=== PATIENT | female | born 1930 | race African-American/Black ===

== ENCOUNTER 2017-11-24 10:56 | Inpatient (IN) | payer MEDICARE ==
[~2017-11-24] VITALS: Ht 157.5 cm; Wt 83.4 kg
[2017-11-24] MEDS ORDERED: SODIUM CHLORIDE 0.9% 500 ML IVB ONE (11:05)
[2017-11-24 11:39] LABS: Basophils # (auto) 0 uL; Basophils % (auto) 0.2 % (0.0-2.0); Eosinophils # (auto) 0 uL; Hematocrit 35.1 % (36.0-46.0); Hemoglobin 11.8 g/dL (12.2-16.2); Lymphocytes # (auto) 0.7 uL; Lymphocytes % (auto) 6.8 % (10.0-50.0); Mean Corpuscular Hemoglobin 30.5 pg (28.0-32.0); Mean Corpuscular Hgb Conc. 33.5 g/dL (32.0-36.0); Monocytes # (auto) 0.6 uL; Monocytes % (auto) 6.2 % (0.0-12.0); Neutrophils # (auto) 8.6 uL; Neutrophils % (auto) 86.8 % (37.0-80.0); Platelet Count (auto) 171 10^3/uL (140-450); Red Blood Cells 3.85 10^6/uL (4.0-5.20); Red Cell Distribution Width 14.1 % (11.8-14.3); White Blood Cell 9.9 10^3/uL (4.4-10.8)
[2017-11-24 12:05] LABS: BUN/Creatinine Ratio 23.1; Bilirubin, Total 0.7 mg/dL (0.2-1.0); Calcium 8.6 mg/dL (8.5-10.1); Magnesium 2.8 mg/dL (1.6-2.6); Potassium 4.1 mmol/L (3.5-5.1); Total Protein 6.2 g/dL (6.4-8.2)
[2017-11-24 13:09] LABS: INR 0.98 (0.9-1.15); Partial Thromboplastin Time 23.4 sec (22.64-33.71); Prothrombin Time 10.7 sec (9.37-12.3)
[2017-11-24 13:18] LABS: Urine Bacteria FEW /hpf (None Seen); Urine Blood 3+ /uL (Negative); Urine Specific Gravity 1.016 (1.001-1.035); Urine WBC 468 /hpf (0 - 5)
[2017-11-24] MEDS ORDERED: LEVOFLOXACIN 500MG 100 ML IV ONE (13:45)
[2017-11-24] MEDS ORDERED: POTASSIUM CHL 20 Meq TABLET PO ONE (13:45)
[2017-11-24] MEDS ORDERED: FUROSEMIDE 40 MG/4 ML VIAL IV ONE (13:45)
[2017-11-24] MEDS ORDERED: MORPHINE SULF INJ 2 MG/ML SYRINGE 1ML IV PRN (13:45)
[2017-11-24] MEDS ORDERED: NITROGLYCERIN 0.4 MG SL TAB SL PRN (13:45)
[2017-11-24] MEDS ORDERED: ENOXAPARIN SOD 30 MG/0.3 ML SYRINGE SC SCH (14:00)
[2017-11-24] MEDS: ASPirin 81 mg TAB PO SCH (14:30)
[2017-11-24 14:51] VITALS: BP 119/55
[2017-11-24] MEDS: FUROSEMIDE 40 MG/4 ML VIAL IV SCH (18:13)
[2017-11-24] MEDS: ATORVASTATIN 20 MG TAB PO SCH (21:23)
[2017-11-24] MEDS: POTASSIUM CHL 20 Meq TABLET PO SCH (21:23)
[2017-11-24 22:00] VITALS: BP 99/53
[2017-11-25 05:00] VITALS: BP 96/49
[2017-11-25] MEDS: FUROSEMIDE 40 MG/4 ML VIAL IV SCH ×2 (05:40→17:40)
[2017-11-25 05:48] LABS: BUN/Creatinine Ratio 22.4; Calcium 8.2 mg/dL (8.5-10.1); Magnesium 2.7 mg/dL (1.6-2.6); Potassium 4.4 mmol/L (3.5-5.1)
[2017-11-25 08:00] VITALS: BP 102/58
[2017-11-25 08:51] VITALS: BP 120/47
[2017-11-25] MEDS: ENOXAPARIN SOD 40 MG/0.4 ML SYRINGE SC SCH (10:00)
[2017-11-25] MEDS: ASPirin 81 mg TAB PO SCH (10:00)
[2017-11-25] MEDS: POTASSIUM CHL 20 Meq TABLET PO SCH ×2 (11:31→22:18)
[2017-11-25 13:00] VITALS: BP 128/53
[2017-11-25 16:15] VITALS: BP 111/47
[2017-11-25] MEDS ORDERED: HYDR-4683 PO (18:11)
[2017-11-25] MEDS ORDERED: LOSA50TA6 PO (18:11)
[2017-11-25] MEDS ORDERED: METH4TAB7 PO (18:11)
[2017-11-25] MEDS ORDERED: ASPI81TA27 PO (18:11)
[2017-11-25] MEDS ORDERED: CARV12.544 PO (18:11)
[2017-11-25] MEDS ORDERED: SIMV-8 PO (18:11)
[2017-11-25] MEDS ORDERED: OMEP20CA74 PO (18:11)
[2017-11-25] MEDS ORDERED: AMLO10TA2 PO (18:11)
[2017-11-25 22:00] VITALS: BP 118/57
[2017-11-25] MEDS: ATORVASTATIN 20 MG TAB PO SCH (22:18)
[2017-11-26 05:18] VITALS: BP 126/57
[2017-11-26] MEDS: FUROSEMIDE 40 MG/4 ML VIAL IV SCH (06:15)
[2017-11-26 06:41] LABS: BUN/Creatinine Ratio 17.1; Calcium 8.2 mg/dL (8.5-10.1); Potassium 4.4 mmol/L (3.5-5.1)
[2017-11-26 08:40] VITALS: BP 121/87
[2017-11-26] MEDS: ASPirin 81 mg TAB PO SCH (09:37)
[2017-11-26] MEDS: ENOXAPARIN SOD 40 MG/0.4 ML SYRINGE SC SCH (09:37)
[2017-11-26] MEDS: POTASSIUM CHL 20 Meq TABLET PO SCH (09:37)
[2017-11-26 11:41] VITALS: BP 129/70
[2017-11-26] MEDS ORDERED: LOSARTAN POTASSIUM 50 MG TAB PO ONE (12:00)
[2017-11-26 16:35] VITALS: BP 116/54
[2017-11-26 22:00] VITALS: BP 121/59
[2017-11-26] MEDS: ATORVASTATIN 20 MG TAB PO SCH (22:11)
[2017-11-26] MEDS: CARVEDILOL 3.125 MG TAB PO SCH (22:12)
[2017-11-27 05:00] VITALS: BP 128/46
[2017-11-27 09:33] VITALS: BP 133/51
[2017-11-27] MEDS: FUROSEMIDE 40 MG/4 ML VIAL IV SCH (09:48)
[2017-11-27] MEDS: CARVEDILOL 3.125 MG TAB PO SCH ×2 (09:49→21:41)
[2017-11-27] MEDS: ASPirin 81 mg TAB PO SCH (09:49)
[2017-11-27] MEDS: LOSARTAN POTASSIUM 50 MG TAB PO SCH (09:50)
[2017-11-27] MEDS: ENOXAPARIN SOD 40 MG/0.4 ML SYRINGE SC SCH (09:50)
[2017-11-27 11:40] VITALS: BP 125/53
[2017-11-27 14:06] VITALS: BP 125/53
[2017-11-27] MEDS ORDERED: MORPHINE SULFATE 4 MG/ML SYR/VIAL IV PRN (20:00)
[2017-11-27] MEDS: ATORVASTATIN 20 MG TAB PO SCH (21:41)
[2017-11-27 22:00] VITALS: BP 119/52
[2017-11-28 05:30] VITALS: BP 140/60
[2017-11-28 08:00] VITALS: BP 104/62
[2017-11-28 08:44] VITALS: BP 104/62
[2017-11-28] MEDS: ASPirin 81 mg TAB PO SCH (09:05)
[2017-11-28] MEDS: CARVEDILOL 3.125 MG TAB PO SCH (09:05)
[2017-11-28] MEDS: LOSARTAN POTASSIUM 50 MG TAB PO SCH (09:06)
[2017-11-28] MEDS: ENOXAPARIN SOD 40 MG/0.4 ML SYRINGE SC SCH (09:06)
[2017-11-28] MEDS: FUROSEMIDE 40 MG/4 ML VIAL IV SCH (09:06)
== END 2017-11-28 10:40 | disposition home or self-care (01) | DRG 291 ==
LOC: ER 10:56 → TELE 10:57 → TELE-WESTW 18:36 → WEST WING 11-28 01:44
PROVIDERS: ADMIT Internal Medicine; ATTEND Internal Medicine
DX: I11.0 Hypertensive heart disease with heart failure (principal); N17.0 Acute kidney failure with tubular necrosis; N39.0 Urinary tract infection, site not specified; J96.10 Chronic respiratory failure, unspecified whether with hypoxia or hypercapnia; E44.1 Mild protein-calorie malnutrition; I50.43 Acute on chronic combined systolic (congestive) and diastolic (congestive) heart failure; J44.9 Chronic obstructive pulmonary disease, unspecified; E66.9 Obesity, unspecified; E78.5 Hyperlipidemia, unspecified; Z68.31 Body mass index [BMI] 31.0-31.9, adult; Z95.0 Presence of cardiac pacemaker; Z87.891 Personal history of nicotine dependence; Z91.018 Allergy to other foods
CPT/HCPCS: 36415; 51702; 70450; 71045; 76705; 80048; 80053; 81001; 83605; 83735; 83880; 84484; 85025; 85610; 85730; 87040; 93005; 93306; 94761; 96361; 96372; 96374; 96375; J1956

== ENCOUNTER 2020-09-22 19:37 | Inpatient (IN) | payer MEDICARE, MEDICAID ==
[~2020-09-22] VITALS: Ht 157.5 cm; Wt 76.5 kg
[~2020-09-22 19:37] MED LIST: AMLO10TA13 PO; ASPI-543 PO; CARV12.544 PO; HYDR-4833 PO; LOSA-69 PO; METH4TAB7 PO; OMEP20CA74 PO; SIMV-8 PO
[2020-09-22] MEDS ORDERED: methylPREDNISolone SOD SUCC 125 MG/2 ML VL IV ONE (20:30)
[2020-09-22] MEDS ORDERED: FUROSEMIDE 20 MG/2 ML VIAL IV ONE ×2 (20:30→21:45)
[2020-09-22 23:43] LABS: Basophils # (auto) 0 10 ^3/uL (0-0.2); Basophils % (auto) 0.5 % (0.0-2.0); Eosinophils # (auto) 0 10 ^3/uL (0-0.8); Eosinophils % (auto) 0.1 % (0.0-7.0); Hematocrit 35.4 % (36.0-46.0); Hemoglobin 11.3 g/dL (12.2-16.2); Lymphocytes # (auto) 1.3 10 ^3/uL (0.4-5.4); Lymphocytes % (auto) 32.5 % (10.0-50.0); Mean Corpuscular Hemoglobin 31.5 pg (28.0-32.0); Mean Corpuscular Hgb Conc. 31.8 g/dL (32.0-36.0); Mean Corpuscular Volume 98.8 fL (80.0-100.0); Monocytes # (auto) 0.6 10 ^3/uL (0-1.3); Monocytes % (auto) 15.5 % (0.0-12.0); Neutrophils # (auto) 2.1 10 ^3/uL (1.6-8.6); Neutrophils % (auto) 51.4 % (37.0-80.0); Nucleated Red Blood Cells % 0.3 %; Platelet Count (auto) 106 10^3/uL (140-450); Red Blood Cells 3.58 10^6/uL (4.0-5.20); Red Cell Distribution Width 14.9 % (11.8-14.3)
[2020-09-23 00:05] LABS: Alanine Aminotransferase 60 U/L (13-56); Aspartate Aminotransferase 50 U/L (15-37); GFR African American 52 mL/min; GFR Non-African American 43 mL/min
[2020-09-23 00:10] LABS: Albumin 3.4 g/dL (3.4-5.0); Alkaline Phosphatase 129 U/L (45-117); Anion Gap 5 (5-15); BUN/Creatinine Ratio 27.2; Bilirubin, Total 0.4 mg/dL (0.2-1.0); Blood Urea Nitrogen 34 mg/dL (7-18); Carbon Dioxide 25 mmol/L (21-32); Chloride 105 mmol/L (98-107); Glucose 103 mg/dL (74-106); Magnesium 2.5 mg/dL (1.6-2.6); Potassium 4.5 mmol/L (3.5-5.1); Sodium 135 mmol/L (136-145); Total Protein 7.1 g/dL (6.4-8.2)
[2020-09-23 00:11] LABS: INR 1.08 (0.9-1.15); Partial Thromboplastin Time 29.4 sec (23.0-31.2)
[2020-09-23] MEDS ORDERED: ALBUTEROL SULF 2.5 MG/0.5ML(0.5%) NEB SOLN NEB ONE (00:45)
[2020-09-23] MEDS ORDERED: IPRATROPIUM BROM 0.5 MG/2.5ML INH SOL NEB ONE (00:45)
[2020-09-23] MEDS ORDERED: IOHEXOL 350 MG/ML 100ML IJ ONE (01:29)
[2020-09-23] MEDS ORDERED: NITROGLYCERIN 0.4 MG SL TAB SL PRN (07:45)
[2020-09-23] MEDS ORDERED: DOCUSATE SOD 100 MG CAP PO PRN (07:45)
[2020-09-23] MEDS ORDERED: MORPHINE SULF INJ 2 MG/ML SYRINGE 1ML IV PRN (07:45)
[2020-09-23] MEDS ORDERED: MORPHINE SULFATE 4 MG/ML SYR/VIAL IV PRN (07:45)
[2020-09-23] MEDS ORDERED: HYDROcodone-ACET 5/325MG TAB PO PRN (07:45)
[2020-09-23] MEDS ORDERED: ACETAMINOPHEN 500 MG TAB PO PRN (07:45)
[2020-09-23] MEDS ORDERED: ONDANSETRON HCL 4 MG/2 ML VIAL IV PRN (07:45)
[2020-09-23 08:55] LABS: Basophils # (auto) 0 10 ^3/uL (0-0.2); Basophils % (auto) 0.3 % (0.0-2.0); Eosinophils # (auto) 0 10 ^3/uL (0-0.8); Hematocrit 34.8 % (36.0-46.0); Hemoglobin 11.2 g/dL (12.2-16.2); Lymphocytes # (auto) 0.6 10 ^3/uL (0.4-5.4); Mean Corpuscular Hemoglobin 31.4 pg (28.0-32.0); Mean Corpuscular Hgb Conc. 32.3 g/dL (32.0-36.0); Mean Corpuscular Volume 97.3 fL (80.0-100.0); Monocytes # (auto) 0.1 10 ^3/uL (0-1.3); Monocytes % (auto) 3.8 % (0.0-12.0); Neutrophils # (auto) 2.8 10 ^3/uL (1.6-8.6); Neutrophils % (auto) 79.9 % (37.0-80.0); Nucleated Red Blood Cells % 0.1 %; Platelet Count (auto) 107 10^3/uL (140-450); Red Blood Cells 3.57 10^6/uL (4.0-5.20); Red Cell Distribution Width 14.7 % (11.8-14.3); White Blood Cell 3.5 10^3/uL (4.4-10.8)
[2020-09-23 09:09] LABS: Calcium 8.5 mg/dL (8.5-10.1); Potassium 4.5 mmol/L (3.5-5.1)
[2020-09-23 09:15] LABS: Albumin 3.5 g/dL (3.4-5.0); BUN/Creatinine Ratio 30.3; Bilirubin, Total 0.5 mg/dL (0.2-1.0); Magnesium 2.7 mg/dL (1.6-2.6)
[2020-09-23] MEDS: BUDESONIDE (INHALATION) 180 MCG IH IN SCH ×2 (10:00→22:23)
[2020-09-23] MEDS: DOXYCYCLINE 100MG/250ML 250 ML IV SCH (10:00)
[2020-09-23] MEDS: CHOLECALCIFEROL (VITD3) 2,000 UNIT CAP PO SCH (10:00)
[2020-09-23] MEDS ORDERED: HEPARIN SODIUM (PORCINE) 5000 UNITS/ML 1ML VIAL SC SCH (10:00)
[2020-09-23] MEDS: FAMOTIDINE (10MG/ML) 2ML VL IV SCH (10:00)
[2020-09-23] MEDS: ASCORBIC ACID 1,000 MG TAB PO SCH (10:00)
[2020-09-23] MEDS: MULTIPLE VITAMIN TAB PO SCH (10:00)
[2020-09-23] MEDS: ZINC SULFATE 220mg CAP or TAB PO SCH (10:00)
[2020-09-23] MEDS ORDERED: FUROSEMIDE 40 MG/4 ML VIAL IV SCH (10:00)
[2020-09-23] MEDS: DexAMETHasone SOD PHOS 10MG/1ML VIAL INJ IV SCH (10:00)
[2020-09-23 11:04] VITALS: BP 122/71
[2020-09-23] MEDS ORDERED: SPIRONOLACTONE 25 MG TAB PO ONE (13:15)
[2020-09-23] MEDS ORDERED: CARVEDILOL 3.125 MG TAB PO ONE (13:15)
[2020-09-23] MEDS: SODIUM CHLOR 0.9% PF (SALINE LOCK) 10ML VIAL/SYR IV SCH ×2 (14:00→23:08)
[2020-09-23] MEDS: ALBUTEROL SULF HFA 90MCG INH 200DOSE IN SCH ×2 (14:00→22:23)
[2020-09-23] MEDS: DOBUTamine 1000MCG/ML 250 ML IV SCH ×2 (15:30→21:37)
[2020-09-23 21:50] VITALS: BP 123/78
[2020-09-23 22:10] VITALS: BP 123/78
[2020-09-23] MEDS: FUROSEMIDE 40 MG/4 ML VIAL IV SCH (23:08)
[2020-09-23] MEDS: CARVEDILOL 3.125 MG TAB PO SCH (23:10)
[2020-09-23] MEDS: ENOXAPARIN SOD 100 MG/1 ML SYRINGE SC SCH (23:10)
[2020-09-24] VITALS (7 sets, daily range): BP systolic 113–147; BP diastolic 66–84
[2020-09-24] MEDS: DOXYCYCLINE 100MG/250ML 250 ML IV SCH (01:28)
[2020-09-24] MEDS: FUROSEMIDE 40 MG/4 ML VIAL IV SCH ×3 (05:50→21:14)
[2020-09-24] MEDS: SODIUM CHLOR 0.9% PF (SALINE LOCK) 10ML VIAL/SYR IV SCH ×3 (05:50→21:14)
[2020-09-24] MEDS: DOBUTamine 1000MCG/ML 250 ML IV SCH ×3 (05:59→21:15)
[2020-09-24] MEDS: BUDESONIDE (INHALATION) 180 MCG IH IN SCH ×2 (06:23→21:47)
[2020-09-24] MEDS: ALBUTEROL SULF HFA 90MCG INH 200DOSE IN SCH ×3 (06:23→21:47)
[2020-09-24 06:46] LABS: Basophils # (auto) 0 10 ^3/uL (0-0.2); Basophils % (auto) 0.1 % (0.0-2.0); Eosinophils # (auto) 0 10 ^3/uL (0-0.8); Hematocrit 32.5 % (36.0-46.0); Hemoglobin 10.4 g/dL (12.2-16.2); Lymphocytes # (auto) 0.7 10 ^3/uL (0.4-5.4); Lymphocytes % (auto) 28.5 % (10.0-50.0); Mean Corpuscular Hemoglobin 31.2 pg (28.0-32.0); Mean Corpuscular Hgb Conc. 32.1 g/dL (32.0-36.0); Mean Corpuscular Volume 97.3 fL (80.0-100.0); Monocytes # (auto) 0.3 10 ^3/uL (0-1.3); Neutrophils # (auto) 1.5 10 ^3/uL (1.6-8.6); Neutrophils % (auto) 59.4 % (37.0-80.0); Nucleated Red Blood Cells % 0.1 %; Platelet Count (auto) 97 10^3/uL (140-450); Red Blood Cells 3.34 10^6/uL (4.0-5.20); Red Cell Distribution Width 14.6 % (11.8-14.3); White Blood Cell 2.6 10^3/uL (4.4-10.8)
[2020-09-24 07:11] LABS: Potassium 4.6 mmol/L (3.5-5.1)
[2020-09-24 07:22] LABS: Albumin 3.2 g/dL (3.4-5.0); BUN/Creatinine Ratio 33.3; Bilirubin, Total 0.5 mg/dL (0.2-1.0); Calcium 8.4 mg/dL (8.5-10.1); Magnesium 2.8 mg/dL (1.6-2.6); Total Protein 6.4 g/dL (6.4-8.2)
[2020-09-24] MEDS: ZINC SULFATE 220mg CAP or TAB PO SCH (09:58)
[2020-09-24] MEDS: DexAMETHasone SOD PHOS 10MG/1ML VIAL INJ IV SCH (09:58)
[2020-09-24] MEDS: SPIRONOLACTONE 25 MG TAB PO SCH (09:58)
[2020-09-24] MEDS: FAMOTIDINE (10MG/ML) 2ML VL IV SCH (09:58)
[2020-09-24] MEDS: MULTIPLE VITAMIN TAB PO SCH (09:59)
[2020-09-24] MEDS: CARVEDILOL 3.125 MG TAB PO SCH ×2 (09:59→21:14)
[2020-09-24] MEDS: DOXYCYCLINE 100 MG TAB/CAP PO SCH ×2 (09:59→21:15)
[2020-09-24] MEDS: ENOXAPARIN SOD 100 MG/1 ML SYRINGE SC SCH ×2 (10:00→21:15)
[2020-09-24] MEDS: ASCORBIC ACID 1,000 MG TAB PO SCH (10:00)
[2020-09-24] MEDS: CHOLECALCIFEROL (VITD3) 2,000 UNIT CAP PO SCH (10:00)
[2020-09-25 05:00] VITALS: BP 136/78
[2020-09-25] MEDS: FUROSEMIDE 40 MG/4 ML VIAL IV SCH ×3 (06:02→21:52)
[2020-09-25] MEDS: SODIUM CHLOR 0.9% PF (SALINE LOCK) 10ML VIAL/SYR IV SCH ×3 (06:02→21:52)
[2020-09-25] MEDS: DOBUTamine 1000MCG/ML 250 ML IV SCH ×2 (06:15→16:00)
[2020-09-25] MEDS: BUDESONIDE (INHALATION) 180 MCG IH IN SCH ×2 (06:41→22:00)
[2020-09-25] MEDS: ALBUTEROL SULF HFA 90MCG INH 200DOSE IN SCH ×3 (06:41→22:00)
[2020-09-25 09:00] VITALS: BP 128/70
[2020-09-25] MEDS: DexAMETHasone SOD PHOS 10MG/1ML VIAL INJ IV SCH (10:14)
[2020-09-25] MEDS: FAMOTIDINE (10MG/ML) 2ML VL IV SCH (10:18)
[2020-09-25] MEDS: ZINC SULFATE 220mg CAP or TAB PO SCH (10:23)
[2020-09-25] MEDS: SPIRONOLACTONE 25 MG TAB PO SCH (10:23)
[2020-09-25] MEDS: MULTIPLE VITAMIN TAB PO SCH (10:25)
[2020-09-25] MEDS: CARVEDILOL 3.125 MG TAB PO SCH ×2 (10:25→21:53)
[2020-09-25] MEDS: DOXYCYCLINE 100 MG TAB/CAP PO SCH ×2 (10:25→21:53)
[2020-09-25] MEDS: ENOXAPARIN SOD 100 MG/1 ML SYRINGE SC SCH ×2 (10:26→21:53)
[2020-09-25] MEDS: CHOLECALCIFEROL (VITD3) 2,000 UNIT CAP PO SCH (10:26)
[2020-09-25] MEDS: ASCORBIC ACID 1,000 MG TAB PO SCH (10:26)
[2020-09-25 13:00] VITALS: BP 141/84
[2020-09-25 17:00] VITALS: BP 131/72
[2020-09-25 20:00] VITALS: BP 131/72
[2020-09-25 22:00] VITALS: BP 131/72
[2020-09-26] MEDS: DOBUTamine 1000MCG/ML 250 ML IV SCH ×3 (03:05→23:20)
[2020-09-26 05:00] VITALS: BP 132/78
[2020-09-26] MEDS: SODIUM CHLOR 0.9% PF (SALINE LOCK) 10ML VIAL/SYR IV SCH ×3 (06:08→22:23)
[2020-09-26] MEDS: FUROSEMIDE 40 MG/4 ML VIAL IV SCH (06:08)
[2020-09-26] MEDS: ALBUTEROL SULF HFA 90MCG INH 200DOSE IN SCH ×3 (07:31→22:31)
[2020-09-26] MEDS: BUDESONIDE (INHALATION) 180 MCG IH IN SCH ×2 (07:31→22:31)
[2020-09-26 09:28] VITALS: BP 140/67
[2020-09-26] MEDS ORDERED: BUMETANIDE 2.5mg/10ml (0.25 mg/ml) INJ IV ONE (09:30)
[2020-09-26] MEDS: FAMOTIDINE (10MG/ML) 2ML VL IV SCH (10:44)
[2020-09-26] MEDS: ZINC SULFATE 220mg CAP or TAB PO SCH (10:44)
[2020-09-26] MEDS: DexAMETHasone SOD PHOS 10MG/1ML VIAL INJ IV SCH (10:44)
[2020-09-26] MEDS: SPIRONOLACTONE 25 MG TAB PO SCH (10:45)
[2020-09-26] MEDS: CARVEDILOL 3.125 MG TAB PO SCH ×2 (10:45→22:23)
[2020-09-26] MEDS: ENOXAPARIN SOD 100 MG/1 ML SYRINGE SC SCH ×2 (10:46→22:24)
[2020-09-26] MEDS: ASCORBIC ACID 1,000 MG TAB PO SCH (10:46)
[2020-09-26] MEDS: MULTIPLE VITAMIN TAB PO SCH (10:46)
[2020-09-26] MEDS: CHOLECALCIFEROL (VITD3) 2,000 UNIT CAP PO SCH (10:46)
[2020-09-26] MEDS: DOXYCYCLINE 100 MG TAB/CAP PO SCH ×2 (10:46→22:23)
[2020-09-26 12:06] VITALS: BP 140/67
[2020-09-26 12:59] VITALS: BP 128/66
[2020-09-26] MEDS ORDERED: POLYETHYLENE GLYCOL 17 GM PWDR PO ONE (14:00)
[2020-09-26 16:40] VITALS: BP 142/79
[2020-09-26] MEDS: BUMETANIDE 2.5mg/10ml (0.25 mg/ml) INJ IV SCH (18:16)
[2020-09-26 22:30] VITALS: BP 148/82
[2020-09-27 05:00] VITALS: BP 129/70
[2020-09-27] MEDS: SODIUM CHLOR 0.9% PF (SALINE LOCK) 10ML VIAL/SYR IV SCH ×3 (05:39→22:31)
[2020-09-27] MEDS: BUMETANIDE 2.5mg/10ml (0.25 mg/ml) INJ IV SCH ×2 (05:39→17:58)
[2020-09-27] MEDS: ALBUTEROL SULF HFA 90MCG INH 200DOSE IN SCH ×3 (06:35→19:25)
[2020-09-27 06:55] LABS: Basophils # (auto) 0 10 ^3/uL (0-0.2); Eosinophils # (auto) 0 10 ^3/uL (0-0.8); Hematocrit 33.5 % (36.0-46.0); Hemoglobin 10.8 g/dL (12.2-16.2); Lymphocytes # (auto) 0.3 10 ^3/uL (0.4-5.4); Lymphocytes % (auto) 5.8 % (10.0-50.0); Mean Corpuscular Hemoglobin 31.4 pg (28.0-32.0); Mean Corpuscular Hgb Conc. 32.4 g/dL (32.0-36.0); Mean Corpuscular Volume 96.9 fL (80.0-100.0); Monocytes # (auto) 0.3 10 ^3/uL (0-1.3); Monocytes % (auto) 5.5 % (0.0-12.0); Neutrophils # (auto) 5.2 10 ^3/uL (1.6-8.6); Neutrophils % (auto) 88.7 % (37.0-80.0); Nucleated Red Blood Cells % 0.2 %; Platelet Count (auto) 101 10^3/uL (140-450); Red Blood Cells 3.45 10^6/uL (4.0-5.20); Red Cell Distribution Width 14.6 % (11.8-14.3); White Blood Cell 5.9 10^3/uL (4.4-10.8)
[2020-09-27 07:13] LABS: Potassium 4.2 mmol/L (3.5-5.1)
[2020-09-27 07:40] LABS: Albumin 3.3 g/dL (3.4-5.0); BUN/Creatinine Ratio 34.6; Bilirubin, Total 0.7 mg/dL (0.2-1.0); CRP High Sensitivity 0.91 mg/dL (< 0.3); Calcium 8.5 mg/dL (8.5-10.1); Magnesium 2.9 mg/dL (1.6-2.6); Total Protein 6.6 g/dL (6.4-8.2)
[2020-09-27] MEDS: DOBUTamine 1000MCG/ML 250 ML IV SCH ×2 (08:42→18:21)
[2020-09-27 09:00] VITALS: BP 137/66
[2020-09-27] MEDS: DexAMETHasone SOD PHOS 10MG/1ML VIAL INJ IV SCH (11:34)
[2020-09-27] MEDS: ZINC SULFATE 220mg CAP or TAB PO SCH (11:35)
[2020-09-27] MEDS: FAMOTIDINE (10MG/ML) 2ML VL IV SCH (11:35)
[2020-09-27] MEDS: SPIRONOLACTONE 25 MG TAB PO SCH (11:35)
[2020-09-27] MEDS: CARVEDILOL 3.125 MG TAB PO SCH ×2 (11:36→22:32)
[2020-09-27] MEDS: DOXYCYCLINE 100 MG TAB/CAP PO SCH ×2 (11:36→22:32)
[2020-09-27] MEDS: MULTIPLE VITAMIN TAB PO SCH (11:36)
[2020-09-27] MEDS: POLYETHYLENE GLYCOL 17 GM PWDR PO SCH (11:36)
[2020-09-27] MEDS: ASCORBIC ACID 1,000 MG TAB PO SCH (11:37)
[2020-09-27] MEDS: CHOLECALCIFEROL (VITD3) 2,000 UNIT CAP PO SCH (11:37)
[2020-09-27] MEDS: ENOXAPARIN SOD 100 MG/1 ML SYRINGE SC SCH (11:37)
[2020-09-27] MEDS ORDERED: cefTRIAXone 1GM/50ML D5W 50 ML IV ONE (12:15)
[2020-09-27 13:00] VITALS: BP 126/80
[2020-09-27] MEDS: BUDESONIDE (INHALATION) 180 MCG IH IN SCH ×2 (14:55→19:25)
[2020-09-27 17:00] VITALS: BP 134/70
[2020-09-27 20:00] VITALS: BP 140/68
[2020-09-27 22:00] VITALS: BP 140/68
[2020-09-28] VITALS (7 sets, daily range): BP systolic 124–158; BP diastolic 61–74
[2020-09-28] MEDS: DOBUTamine 1000MCG/ML 250 ML IV SCH (03:09)
[2020-09-28] MEDS: ALBUTEROL SULF HFA 90MCG INH 200DOSE IN SCH (06:03)
[2020-09-28] MEDS: BUDESONIDE (INHALATION) 180 MCG IH IN SCH ×2 (06:03→21:59)
[2020-09-28] MEDS: SODIUM CHLOR 0.9% PF (SALINE LOCK) 10ML VIAL/SYR IV SCH ×3 (06:13→22:00)
[2020-09-28] MEDS: BUMETANIDE 2.5mg/10ml (0.25 mg/ml) INJ IV SCH (06:13)
[2020-09-28] MEDS: ASCORBIC ACID 1,000 MG TAB PO SCH (09:48)
[2020-09-28] MEDS: CHOLECALCIFEROL (VITD3) 2,000 UNIT CAP PO SCH (09:48)
[2020-09-28] MEDS: SPIRONOLACTONE 25 MG TAB PO SCH (09:49)
[2020-09-28] MEDS: DOXYCYCLINE 100 MG TAB/CAP PO SCH ×2 (09:49→22:00)
[2020-09-28] MEDS: ZINC SULFATE 220mg CAP or TAB PO SCH (09:49)
[2020-09-28] MEDS: CARVEDILOL 3.125 MG TAB PO SCH (09:50)
[2020-09-28] MEDS: ENOXAPARIN SOD 80 MG/0.8ML SYRINGE SC SCH (09:51)
[2020-09-28] MEDS: DexAMETHasone SOD PHOS 10MG/1ML VIAL INJ IV SCH (09:52)
[2020-09-28] MEDS: cefTRIAXone 1GM/50ML D5W 50 ML IV SCH (09:52)
[2020-09-28] MEDS: POLYETHYLENE GLYCOL 17 GM PWDR PO SCH (09:53)
[2020-09-28] MEDS: MULTIPLE VITAMIN TAB PO SCH (10:38)
[2020-09-28] MEDS: FAMOTIDINE (10MG/ML) 2ML VL IV SCH (10:38)
[2020-09-28 10:53] LABS: Basophils # (auto) 0 10 ^3/uL (0-0.2); Basophils % (auto) 0.1 % (0.0-2.0); Eosinophils # (auto) 0 10 ^3/uL (0-0.8); Hematocrit 35.4 % (36.0-46.0); Hemoglobin 11.4 g/dL (12.2-16.2); Lymphocytes # (auto) 0.3 10 ^3/uL (0.4-5.4); Lymphocytes % (auto) 5.5 % (10.0-50.0); Mean Corpuscular Hemoglobin 31.9 pg (28.0-32.0); Mean Corpuscular Hgb Conc. 32.1 g/dL (32.0-36.0); Mean Corpuscular Volume 99.3 fL (80.0-100.0); Monocytes # (auto) 0.4 10 ^3/uL (0-1.3); Monocytes % (auto) 6.2 % (0.0-12.0); Neutrophils # (auto) 5.1 10 ^3/uL (1.6-8.6); Neutrophils % (auto) 88.2 % (37.0-80.0); Nucleated Red Blood Cells % 0.7 %; Platelet Count (auto) 103 10^3/uL (140-450); Red Blood Cells 3.56 10^6/uL (4.0-5.20); Red Cell Distribution Width 14.6 % (11.8-14.3); White Blood Cell 5.8 10^3/uL (4.4-10.8)
[2020-09-28 11:31] LABS: BUN/Creatinine Ratio 34.4; Calcium 7.8 mg/dL (8.5-10.1)
[2020-09-28 11:38] LABS: Potassium 5.8 mmol/L (3.5-5.1)
[2020-09-28] MEDS ORDERED: SODIUM ZIRCONIUM CYCL 10 GM PAK PO ONE (13:00)
[2020-09-28 17:08] LABS: Urine Bacteria FEW /hpf (None Seen); Urine Blood 2+ /uL (Negative); Urine Hyaline Cast MOD /lpf (0 - 2); Urine Specific Gravity 1.012 (1.001-1.035); Urine WBC 2 /hpf (0 - 5)
[2020-09-28 17:20] LABS: Protein, Urine 62.6 mg/dL (0.0-11.9)
[2020-09-28] MEDS: CARVEDILOL 12.5 MG TAB PO SCH (22:00)
[2020-09-28] MEDS: ALBUTEROL SULF HFA 90MCG INH 200DOSE IN PRN (22:00)
[2020-09-29 05:00] VITALS: BP 129/68
[2020-09-29] MEDS: SODIUM CHLOR 0.9% PF (SALINE LOCK) 10ML VIAL/SYR IV SCH ×3 (06:00→22:30)
[2020-09-29 07:40] LABS: Basophils # (auto) 0 10 ^3/uL (0-0.2); Basophils % (auto) 0.1 % (0.0-2.0); Eosinophils # (auto) 0 10 ^3/uL (0-0.8); Hematocrit 35.8 % (36.0-46.0); Hemoglobin 11.2 g/dL (12.2-16.2); Lymphocytes # (auto) 0.3 10 ^3/uL (0.4-5.4); Lymphocytes % (auto) 5.7 % (10.0-50.0); Mean Corpuscular Hemoglobin 30.8 pg (28.0-32.0); Mean Corpuscular Hgb Conc. 31.3 g/dL (32.0-36.0); Mean Corpuscular Volume 98.3 fL (80.0-100.0); Monocytes # (auto) 0.3 10 ^3/uL (0-1.3); Monocytes % (auto) 5.8 % (0.0-12.0); Neutrophils % (auto) 88.4 % (37.0-80.0); Nucleated Red Blood Cells % 1.2 %; Platelet Count (auto) 106 10^3/uL (140-450); Red Blood Cells 3.64 10^6/uL (4.0-5.20); Red Cell Distribution Width 14.7 % (11.8-14.3); White Blood Cell 5.6 10^3/uL (4.4-10.8)
[2020-09-29 07:56] LABS: Potassium 4.5 mmol/L (3.5-5.1)
[2020-09-29 08:00] LABS: BUN/Creatinine Ratio 35.5; Calcium 8.6 mg/dL (8.5-10.1)
[2020-09-29 09:00] VITALS: BP 127/64
[2020-09-29] MEDS: cefTRIAXone 1GM/50ML D5W 50 ML IV SCH (09:38)
[2020-09-29] MEDS: DexAMETHasone SOD PHOS 10MG/1ML VIAL INJ IV SCH (09:38)
[2020-09-29] MEDS: FAMOTIDINE (10MG/ML) 2ML VL IV SCH (09:39)
[2020-09-29] MEDS: POLYETHYLENE GLYCOL 17 GM PWDR PO SCH (09:39)
[2020-09-29] MEDS: DOXYCYCLINE 100 MG TAB/CAP PO SCH ×2 (09:39→22:31)
[2020-09-29] MEDS: MULTIPLE VITAMIN TAB PO SCH (09:39)
[2020-09-29] MEDS: ASCORBIC ACID 1,000 MG TAB PO SCH (09:39)
[2020-09-29] MEDS: ZINC SULFATE 220mg CAP or TAB PO SCH (09:39)
[2020-09-29] MEDS: ENOXAPARIN SOD 80 MG/0.8ML SYRINGE SC SCH (09:40)
[2020-09-29] MEDS: CHOLECALCIFEROL (VITD3) 2,000 UNIT CAP PO SCH (09:40)
[2020-09-29] MEDS: CARVEDILOL 12.5 MG TAB PO SCH ×2 (09:41→22:31)
[2020-09-29] MEDS: BUDESONIDE (INHALATION) 180 MCG IH IN SCH ×2 (09:41→22:33)
[2020-09-29] MEDS: ALBUTEROL SULF HFA 90MCG INH 200DOSE IN PRN ×2 (09:41→22:33)
[2020-09-29] MEDS ORDERED: SODIUM CHLORIDE 0.9% 1,000 ML IV ONE (10:45)
[2020-09-29 13:00] VITALS: BP 118/53
[2020-09-29 17:00] VITALS: BP 112/63
[2020-09-29 20:00] VITALS: BP 123/75
[2020-09-29 22:00] VITALS: BP 123/75
[2020-09-30 05:00] VITALS: BP 98/50
[2020-09-30] MEDS: SODIUM CHLOR 0.9% PF (SALINE LOCK) 10ML VIAL/SYR IV SCH ×3 (06:11→21:46)
[2020-09-30 07:03] LABS: BUN/Creatinine Ratio 36.3; Potassium 4.6 mmol/L (3.5-5.1)
[2020-09-30 07:04] LABS: Calcium 8.7 mg/dL (8.5-10.1)
[2020-09-30] MEDS: BUDESONIDE (INHALATION) 180 MCG IH IN SCH ×2 (07:52→19:52)
[2020-09-30 09:00] VITALS: BP 108/64
[2020-09-30] MEDS: ENOXAPARIN SOD 80 MG/0.8ML SYRINGE SC SCH ×2 (10:00→10:28)
[2020-09-30] MEDS: CARVEDILOL 12.5 MG TAB PO SCH ×2 (10:00→21:47)
[2020-09-30] MEDS: cefTRIAXone 1GM/50ML D5W 50 ML IV SCH (10:25)
[2020-09-30] MEDS: FAMOTIDINE (10MG/ML) 2ML VL IV SCH (10:25)
[2020-09-30] MEDS: ZINC SULFATE 220mg CAP or TAB PO SCH (10:26)
[2020-09-30] MEDS: CHOLECALCIFEROL (VITD3) 2,000 UNIT CAP PO SCH (10:27)
[2020-09-30] MEDS: DOXYCYCLINE 100 MG TAB/CAP PO SCH ×2 (10:27→21:46)
[2020-09-30] MEDS: MULTIPLE VITAMIN TAB PO SCH (10:27)
[2020-09-30] MEDS: ASCORBIC ACID 1,000 MG TAB PO SCH (10:27)
[2020-09-30] MEDS: POLYETHYLENE GLYCOL 17 GM PWDR PO SCH (10:28)
[2020-09-30] MEDS ORDERED: SODIUM CHLORIDE 0.9% 1,000 ML IV ONE (11:45)
[2020-09-30 12:39] VITALS: BP 114/65
[2020-09-30 16:56] VITALS: BP 103/62
[2020-09-30 20:00] VITALS: BP 106/60
[2020-09-30] MEDS: ALBUTEROL SULF HFA 90MCG INH 200DOSE IN PRN (21:26)
[2020-09-30 22:00] VITALS: BP 103/62
[2020-10-01 05:30] VITALS: BP 112/60
[2020-10-01] MEDS: SODIUM CHLOR 0.9% PF (SALINE LOCK) 10ML VIAL/SYR IV SCH ×3 (05:42→22:16)
[2020-10-01 06:26] LABS: BUN/Creatinine Ratio 41.3; Calcium 8.5 mg/dL (8.5-10.1)
[2020-10-01] MEDS: BUDESONIDE (INHALATION) 180 MCG IH IN SCH ×2 (07:03→22:00)
[2020-10-01 09:00] VITALS: BP 103/57
[2020-10-01] MEDS: cefTRIAXone 1GM/50ML D5W 50 ML IV SCH (09:40)
[2020-10-01] MEDS: FAMOTIDINE (10MG/ML) 2ML VL IV SCH (09:40)
[2020-10-01] MEDS: ASCORBIC ACID 1,000 MG TAB PO SCH (09:41)
[2020-10-01] MEDS: DOXYCYCLINE 100 MG TAB/CAP PO SCH ×2 (09:41→22:17)
[2020-10-01] MEDS: POLYETHYLENE GLYCOL 17 GM PWDR PO SCH (09:41)
[2020-10-01] MEDS: ZINC SULFATE 220mg CAP or TAB PO SCH (09:41)
[2020-10-01] MEDS: MULTIPLE VITAMIN TAB PO SCH (09:41)
[2020-10-01] MEDS: CHOLECALCIFEROL (VITD3) 2,000 UNIT CAP PO SCH (09:41)
[2020-10-01] MEDS: CARVEDILOL 12.5 MG TAB PO SCH ×2 (09:53→22:17)
[2020-10-01] MEDS: ENOXAPARIN SOD 80 MG/0.8ML SYRINGE SC SCH (09:54)
[2020-10-01 13:00] VITALS: BP 119/72
[2020-10-01] MEDS: ALBUTEROL SULF HFA 90MCG INH 200DOSE IN PRN ×2 (14:29→23:26)
[2020-10-01 17:44] VITALS: BP 118/53
[2020-10-01 20:00] VITALS: BP 114/52
[2020-10-01 22:00] VITALS: BP 114/52
[2020-10-02 05:00] VITALS: BP 112/56
[2020-10-02] MEDS: SODIUM CHLOR 0.9% PF (SALINE LOCK) 10ML VIAL/SYR IV SCH ×3 (05:29→21:38)
[2020-10-02 06:42] LABS: Basophils # (auto) 0 10 ^3/uL (0-0.2); Basophils % (auto) 0.1 % (0.0-2.0); Eosinophils # (auto) 0 10 ^3/uL (0-0.8); Hematocrit 34.9 % (36.0-46.0); Hemoglobin 11.1 g/dL (12.2-16.2); Lymphocytes # (auto) 0.2 10 ^3/uL (0.4-5.4); Lymphocytes % (auto) 3.3 % (10.0-50.0); Mean Corpuscular Hemoglobin 30.8 pg (28.0-32.0); Mean Corpuscular Hgb Conc. 31.7 g/dL (32.0-36.0); Mean Corpuscular Volume 97.3 fL (80.0-100.0); Monocytes # (auto) 0.2 10 ^3/uL (0-1.3); Monocytes % (auto) 3.2 % (0.0-12.0); Neutrophils # (auto) 6.3 10 ^3/uL (1.6-8.6); Neutrophils % (auto) 93.4 % (37.0-80.0); Nucleated Red Blood Cells % 0.3 %; Platelet Count (auto) 136 10^3/uL (140-450); Red Blood Cells 3.59 10^6/uL (4.0-5.20); Red Cell Distribution Width 15.5 % (11.8-14.3); White Blood Cell 6.7 10^3/uL (4.4-10.8)
[2020-10-02 08:00] VITALS: BP 118/82
[2020-10-02 08:30] VITALS: BP 118/82
[2020-10-02] MEDS: BUDESONIDE (INHALATION) 180 MCG IH IN SCH ×2 (10:00→20:50)
[2020-10-02] MEDS: CARVEDILOL 12.5 MG TAB PO SCH ×2 (10:00→21:39)
[2020-10-02] MEDS: cefTRIAXone 1GM/50ML D5W 50 ML IV SCH (10:13)
[2020-10-02] MEDS: FAMOTIDINE (10MG/ML) 2ML VL IV SCH (10:13)
[2020-10-02] MEDS: ZINC SULFATE 220mg CAP or TAB PO SCH (10:15)
[2020-10-02] MEDS: CHOLECALCIFEROL (VITD3) 2,000 UNIT CAP PO SCH (10:16)
[2020-10-02] MEDS: ASCORBIC ACID 1,000 MG TAB PO SCH (10:16)
[2020-10-02] MEDS: DOXYCYCLINE 100 MG TAB/CAP PO SCH ×2 (10:16→21:38)
[2020-10-02] MEDS: POLYETHYLENE GLYCOL 17 GM PWDR PO SCH (10:16)
[2020-10-02] MEDS: MULTIPLE VITAMIN TAB PO SCH (10:16)
[2020-10-02] MEDS: ENOXAPARIN SOD 80 MG/0.8ML SYRINGE SC SCH (13:24)
[2020-10-02 14:27] VITALS: BP 127/74
[2020-10-02] MEDS ORDERED: SODIUM CHLORIDE 0.9% 1,000 ML IV ONE (15:00)
[2020-10-02] MEDS: ALBUTEROL SULF HFA 90MCG INH 200DOSE IN PRN (16:12)
[2020-10-02 17:14] VITALS: BP 117/49
[2020-10-03] MEDS: ALBUTEROL SULF HFA 90MCG INH 200DOSE IN PRN ×2 (01:35→22:57)
[2020-10-03] MEDS: SODIUM CHLOR 0.9% PF (SALINE LOCK) 10ML VIAL/SYR IV SCH ×3 (05:02→21:20)
[2020-10-03 05:37] VITALS: BP 92/53
[2020-10-03] MEDS: BUDESONIDE (INHALATION) 180 MCG IH IN SCH ×2 (08:15→22:57)
[2020-10-03 08:42] LABS: Potassium 4.9 mmol/L (3.5-5.1)
[2020-10-03 08:47] LABS: BUN/Creatinine Ratio 46.2; Calcium 8.9 mg/dL (8.5-10.1)
[2020-10-03] MEDS: cefTRIAXone 1GM/50ML D5W 50 ML IV SCH (08:59)
[2020-10-03 09:02] VITALS: BP 106/60
[2020-10-03] MEDS: CARVEDILOL 12.5 MG TAB PO SCH (10:00)
[2020-10-03] MEDS ORDERED: SODIUM CHLORIDE 0.9% 1,000 ML IV SCH (10:30)
[2020-10-03] MEDS: ENOXAPARIN SOD 80 MG/0.8ML SYRINGE SC SCH (10:45)
[2020-10-03] MEDS: ASCORBIC ACID 1,000 MG TAB PO SCH (10:45)
[2020-10-03] MEDS: FAMOTIDINE (10MG/ML) 2ML VL IV SCH (10:46)
[2020-10-03] MEDS: MULTIPLE VITAMIN TAB PO SCH (10:46)
[2020-10-03] MEDS: DOXYCYCLINE 100 MG TAB/CAP PO SCH ×2 (10:46→21:38)
[2020-10-03] MEDS: CHOLECALCIFEROL (VITD3) 2,000 UNIT CAP PO SCH (10:47)
[2020-10-03] MEDS: POLYETHYLENE GLYCOL 17 GM PWDR PO SCH (10:47)
[2020-10-03] MEDS: D5W 5% 1,000 ML IV SCH ×2 (11:15→23:00)
[2020-10-03] MEDS: ZINC SULFATE 220mg CAP or TAB PO SCH (12:18)
[2020-10-03 12:52] VITALS: BP 123/64
[2020-10-03 17:00] VITALS: BP 110/63
[2020-10-03] MEDS: CARVEDILOL 3.125 MG TAB PO SCH (21:38)
[2020-10-03 21:40] VITALS: BP 102/59
[2020-10-04] MEDS: SODIUM CHLOR 0.9% PF (SALINE LOCK) 10ML VIAL/SYR IV SCH ×3 (05:31→21:13)
[2020-10-04 05:39] VITALS: BP 124/67
[2020-10-04 06:40] LABS: BUN/Creatinine Ratio 50.2; Calcium 8.6 mg/dL (8.5-10.1); Potassium 4.3 mmol/L (3.5-5.1)
[2020-10-04 09:00] VITALS: BP 120/55
[2020-10-04] MEDS: BUDESONIDE (INHALATION) 180 MCG IH IN SCH ×2 (10:00→22:00)
[2020-10-04] MEDS: FAMOTIDINE (10MG/ML) 2ML VL IV SCH (10:11)
[2020-10-04] MEDS: ZINC SULFATE 220mg CAP or TAB PO SCH (10:11)
[2020-10-04] MEDS: cefTRIAXone 1GM/50ML D5W 50 ML IV SCH (10:11)
[2020-10-04] MEDS: POLYETHYLENE GLYCOL 17 GM PWDR PO SCH (10:12)
[2020-10-04] MEDS: CARVEDILOL 3.125 MG TAB PO SCH ×2 (10:12→21:13)
[2020-10-04] MEDS: ASCORBIC ACID 1,000 MG TAB PO SCH (10:13)
[2020-10-04] MEDS: DOXYCYCLINE 100 MG TAB/CAP PO SCH ×2 (10:13→21:13)
[2020-10-04] MEDS: MULTIPLE VITAMIN TAB PO SCH (10:13)
[2020-10-04] MEDS: ENOXAPARIN SOD 80 MG/0.8ML SYRINGE SC SCH (10:14)
[2020-10-04] MEDS: CHOLECALCIFEROL (VITD3) 2,000 UNIT CAP PO SCH (10:14)
[2020-10-04 13:00] VITALS: BP 130/53
[2020-10-04] MEDS: D5W 5% 1,000 ML IV SCH (16:11)
[2020-10-04 17:00] VITALS: BP 129/75
[2020-10-04 21:30] VITALS: BP 118/61
[2020-10-05] MEDS: D5W 5% 1,000 ML IV SCH (00:15)
== END 2020-10-05 03:09 | DRG 177 ==
LOC: ER 19:37 → EDBD 19:37 → EDUNIT# 19:37 → TELE 19:38 → TELE-CENTR 09-23 19:55 → TELE-EAST 10-04 12:15 → TELE-CENTR 10-04 12:16
PROVIDERS: ADMIT Nurse Practitioner Family; ATTEND Internal Medicine
DX: U07.1 COVID-19 (principal); J12.89 Other viral pneumonia; I21.4 Non-ST elevation (NSTEMI) myocardial infarction; J96.01 Acute respiratory failure with hypoxia; N17.0 Acute kidney failure with tubular necrosis; I50.23 Acute on chronic systolic (congestive) heart failure; I42.9 Cardiomyopathy, unspecified; I82.412 Acute embolism and thrombosis of left femoral vein; J44.0 Chronic obstructive pulmonary disease with (acute) lower respiratory infection; I13.0 Hypertensive heart and chronic kidney disease with heart failure and stage 1 through stage 4 chronic kidney disease, or unspecified chronic kidney disease; J44.1 Chronic obstructive pulmonary disease with (acute) exacerbation; J98.11 Atelectasis; I27.20 Pulmonary hypertension, unspecified; E66.9 Obesity, unspecified; I07.1 Rheumatic tricuspid insufficiency; E78.5 Hyperlipidemia, unspecified; D64.9 Anemia, unspecified; E87.5 Hyperkalemia; N18.30 Chronic kidney disease, stage 3 unspecified; E78.00 Pure hypercholesterolemia, unspecified; E27.9 Disorder of adrenal gland, unspecified; D69.6 Thrombocytopenia, unspecified; E11.22 Type 2 diabetes mellitus with diabetic chronic kidney disease; Z51.5 Encounter for palliative care; Z66 Do not resuscitate; Z79.84 Long term (current) use of oral hypoglycemic drugs; Z68.30 Body mass index [BMI] 30.0-30.9, adult; Z95.810 Presence of automatic (implantable) cardiac defibrillator; Z83.3 Family history of diabetes mellitus; Z87.891 Personal history of nicotine dependence; Z79.899 Other long term (current) drug therapy
CPT/HCPCS: 36415; 36600; 51702; 71045; 71275; 80048; 80053; 81001; 82570; 82728; 82805; 83036; 83615; 83735; 83880; 84156; 84300; 84443; 84484; 85025; 85379; 85610; 85730; 86141; 87426; 93005; 93970; 94640; 96365; 96367; 96372; 96375; 96376; 97110; 97530; G0378; J0696; J1100; J3490